=== PATIENT | female | born 1975 | race Caucasian/White ===

== ENCOUNTER → 2021-02-25 | Outpatient (CLI) | payer OTHER ==
[~2021-02-25] MED LIST: ANUSOL-HC25 MG RC; AUGMENTIN 875 M1 TAB PO; BIAXIN XL500 MG PO; CLARITIN10 MG PO; DARVOCET N 1001 TAB PO; DAYPRO600 M1 PO; LOPRESSOR50 MG PO
== END | disposition home or self-care (01) ==
LOC: US 01-23 14:00
PROVIDERS: ATTEND Nurse Practitioner Family
DX: E04.9 Nontoxic goiter, unspecified (principal)